=== PATIENT | male | born 1965 | race Caucasian/White ===

== ENCOUNTER → 2018-07-02 | Outpatient (CLI) | payer BC | LOC: COL.RAD 06-13 13:15 | DX: M99.71 Connective tissue and disc stenosis of intervertebral foramina of cervical region (principal); M47.812 Spondylosis without myelopathy or radiculopathy, cervical region ==

== ENCOUNTER → 2018-11-24 | Outpatient (CLI) | payer BC | LOC: COL.RAD 13:04 | DX: M75.111 Incomplete rotator cuff tear or rupture of right shoulder, not specified as traumatic (principal); S46.811A Strain of other muscles, fascia and tendons at shoulder and upper arm level, right arm, initial encounter | CPT/HCPCS: A9585; Q9967 ==

== ENCOUNTER 2018-12-22 06:02 | Day surgery (SDC) | payer BC ==
[2018-12-22] VITALS (7 sets, daily range): BP systolic 124–142; BP diastolic 75–89; PULSE 57–81; TEMP 97.3
[~2018-12-22] VITALS: Ht 175.3 cm; Wt 78.5 kg
--- NOTE | 2018-12-22 07:02 | NUR ---
Patient to PACU for a block at this time.
--- NOTE | 2018-12-22 10:00 | NUR ---
Patient arrives to [facility] [place] [address] via cart, accompanied by [employer] Nyla. Patient is sitting up in bed, alert and oriented. Monitoring applied -VSS and WNL on room air. Patient has abductor sling in place on right arm. His right shoulder has 5 operative sites covered by dry dressings. Ice pack in place on right shoulder. Patient has slight feeling to his right hand and is able to slightly move his right fingers. Neurovascular assessment of right upper extremity is WNL. brought to the bedside. Will continue to monitor.
--- NOTE | 2018-12-22 10:15 | NUR ---
VSS and WNL on room air. Patient denies any pain or nausea. Offered and receives water and pudding to eat. Neurovascular assessment remains WNL. Patient has been resting comfortably.
--- NOTE | 2018-12-22 10:30 | NUR ---
VSS and WNL on room air. Patient resting comfortably in room. Denies any pain, nausea, or need.
--- NOTE | 2018-12-22 10:45 | NUR ---
Denies any pain, nausea, or need.
--- NOTE | 2018-12-22 10:58 | NUR ---
Initial visit; Patient thanked [employer] Apprentice for offering prayer and thorough and rapid healing from his surgical procedure.
--- NOTE | 2018-12-22 11:33 | NUR ---
Patient escorted to restroom at this time to void.
--- NOTE | 2018-12-22 11:37 | NUR ---
Patient was able to void. Returned to room with standby assist.
--- NOTE | 2018-12-22 12:10 | NUR ---
Patient has met discharge criteria. Discharge instructions discussed, denies any questions, and verbalizes understanding. is at the bedside for instructions. Assisted patient to change into clothes. Abductor sling in place and patient/ verbalize correct placement and understand to wear at all times (except to shower, per MD instructions). Escorted to exit via wheelchair. Discharged to home with ride in private vehicle at 1210.
== END 2018-12-22 12:10 | disposition home or self-care (01) ==
LOC: SDCO 06:02
DX: M75.111 Incomplete rotator cuff tear or rupture of right shoulder, not specified as traumatic (principal); M75.81 Other shoulder lesions, right shoulder; G89.29 Other chronic pain
CPT/HCPCS: A4619; C1713; J0171; J0690; J1100; J2250; J2405; J2704; J3010; J7120